=== PATIENT | male | born 1950 | race Caucasian/White ===

== ENCOUNTER 2024-07-13 21:37 | Emergency (ER) | payer OTHER ==
--- OUTSIDE RECORDS SUMMARY | 2024-07-13 21:40 | XMS REPORT | Continuity of Care Document ---
Author Name Unknown Address [address] [place] [address] [facility] [place] Address [address] [place] [address] Care Team Providers Care Clock Maker Name Role Phone JUSTINA ZUÑIGA Primary Care Physician Alek [facility] Attending Clinician CARMEN Parsons Attending Clinician UnavailCARMEN Weiner Attending Clinician Unavail able LAB90 Attending Clinician Unavailable Pob, Adc Lab Main Attending Clinician UnavailJustina Dinh Attending Clinician [phone] JUSTINA ZUÑIGA Attending Clinician Unavailable Doctor Unassigned, [place] Attending Clinician U navailable Payers Payer Name Policy Type Policy Number Effective Date Expirati on Date Source [employer] [place] PPO 5 [id number] 2024 00:00:00 [employer] 2 [id number] 2024 00:00:00 Problems Condition Name Condition Details Condition Category Status Onset Date Resolution Date Last Treatment Date Treating Clinician Comments Source Well adult exam Well adult exam Disease Active 06-04 00:00: 00 Irma rojas Blood pressure elevated without history of HTN Blood pressure elevated without history of HTN Disease Active 06-04 00:00: 00 Irma rojas Allergies, Adverse Reactions, Alerts Allergy Name Allergy Type Status Severity Reaction(s) Onset Date Inactive Date Treating Clinician Comments Source NO KNOWN ALLERGIE S Drug Class Active [facility] Social History Social Habit Start Date Stop Date Quantity Comments Source Sexual orientation Roque Mata - External Alcoholic beverage intake 2024-06-04 00:00:00 2024-06-04 00:00:00 Lifetime non-drinker (finding) Irma Mata - External History of Social function 2024-06-04 00:00:00 2024-06-04 00:00:00 Irma Mata - External Tobacco use and exposure 2024-05-06 00:00:00 2024-05-06 00:00:00 Smokeless tobacco non-user Irma Mata - External Sex 2024-04-07 08:07:11 2024-04-07 08:07:11 Male (finding) Irma Mata - External Sex assigned at 1950 00:00:00 1950 00:00:00 Irma Mata - External Smoking Status Start Date Stop Date Source Unknown if ever smoked [facility] Never smoked tobacco Irma Croninectorarturo - External Medications Ordered Medication Name Filled Medication Name Start Date Stop Date Current Medication? Ordering Clinician Indication Dosage Frequency Signature (SIG) Comments Components Source Amoxicillin -Pot Clavulanate 875-125 MG oral Tablet 05-06 00:00: 00 06-04 00:00 :00 No [id number] 1{tbl} Take 1 tablet by mouth every 12 hours Please take with food. Irma Croninboogie - Externa l Vital Signs Vital Name Observation Time Observation Value Comments S ource Systolic blood pressure 2024-06-04 14:42:00 144 mm[Hg] Irma magdalena ld - External Diastolic blood pressure 2024-06-04 14:42:00 72 mm[Hg] Irma magdalena ld - External Heart rate 2024-06-04 13:44:00 73 /min Vickey Mata - External Body temperature 2024-06-04 13:44:00 36.56 Catrachita Irma Esperanza - External Respiratory rate 2024-06-04 13:44:00 20 /min Irma boogie - External Body height 2024-06-04 13:44:00 180.3 cm Nohemy Mata - External Body weight 2024-06-04 13:44:00 128.822 kg Nohemy ey Seybold - External BMI 2024-06-04 13:44:00 39.61 kg/m2 Nohemy ey Seybold - External Oxygen saturation in Arterial blood by Pulse oximetry 2024-06-04 13:44:00 95 /min Irma Saleho ld - External Systolic blood pressure 2024-05-06 16:06:00 130 mm[Hg] Irma Saleho ld - External Diastolic blood pressure 2024-05-06 16:06:00 87 mm[Hg] Irma Saleho ld - External Heart rate 2024-05-06 16:06:00 88 /min Vickey y Seybold - External Body temperature 2024-05-06 16:06:00 36.5 Catrachita Irma Croninybold - External Respiratory rate 2024-05-06 16:06:00 19 /min Irma Croninybold - External Body height 2024-05-06 16:06:00 180.3 cm Nohemy ey Seybold - External Body weight 2024-05-06 16:06:00 125.646 kg Nohemy ey Seybold - External BMI 2024-05-06 16:06:00 38.63 kg/m2 Nohemy benedict Seybold - External Oxygen saturation in Arterial blood by Pulse oximetry 2024-05-06 16:06:00 95 /min Irma Lucas ld - External Procedures Procedure Date / Time Performed Performing Clinicia n Source ASSIGNMENT OF BENEFITS 2021-07-14 14:42:34 Docto r Unassigned, [place] [facility] Encounters Start Date/Time End Date/Time Encounter Type Admission Type [facility] Department Encounter ID Source 2024-06-11 09:15:00 2024-06-11 09:15:00 Outpatient LIAT [facility] [id number] Irma Mata 2024-06-11 00:00:00 2024-06-11 00:00:00 Outpatient CARMEN GIRARD [id number] Irma Mata 2024-06-09 00:00:00 2024-06-09 00:00:00 Outpatient CARMEN GIRARD [id number] Irma Mata 2024-06-04 10:05:00 2024-06-04 10:05:00 Outpatient LAB90 IRMA NIÑO [id number] Irma Mata 2024-06-04 09:00:00 2024-06-04 09:00:00 Outpatient CARMEN GIRARD [id number] Irma Mata 2024-05-06 10:00:00 2024-05-06 10:00:00 Outpatient CARMEN GIRARD IRMA [id number] Irma Mata 2021-07-14 10:30:00 2021-07-14 10:45:00 Picker Operator Visit Pob, Adc Lab Justina Dhillon [facility] [id number] [facility] 2021-07-14 10:30:00 2021-07-14 10:30:00 Outpatient R JUSTINA ZUÑIGA [facility] [id number] [facility] 2021-07-14 00:00:00 2021-07-14 00:00:00 Orders Only Doctor Unassigned, [place] [facility] [id number] [facility]
[2024-07-13] MEDS ORDERED: NA CHLORIDE 0.9% 1,000 ML ONE (22:44)
[2024-07-13 22:49] LABS: Absolute Lymphocytes (CBC) 1.6 K/uL (0.7-4.9); Absolute Monocytes 0.9 K/uL (0.1-1.3); Basophils % 0.3 % (0-1.3); Eosinophils % 0.1 % (0-4.4); Hematocrit 43.9 % (39.6-49.0); Hemoglobin 14.9 g/dL (13.6-17.9); Lymphocytes % 16.6 % (15.3-44.8); MCHC 33.9 g/dL (32.0-36.0); MCV 94.4 fL (80-100); MPV 10.9 fL (7.6-11.3); Monocytes % 9.8 % (3.3-12.3); Neutrophils % 73.2 % (41.7-73.7); Nucleated Red Blood Cells % 0.1 % (0-0); Platelets 123 thou/uL (152-406); RBC Red Blood Cell Count 4.65 M/uL (4.33-5.43); Red Cell Distribution Width 12.6 % (12.1-15.2)
[2024-07-13 23:03] LABS: Albumin/Globulin Ratio 0.6 (1.1-1.8); Anion Gap 10.1 mEq/L (5.0-15.0); Bilirubin Total 0.8 mg/dL (0.2-1.0); Globulin 5.1 g/dL (2.3-3.5); Potassium 4.1 mEq/L (3.5-5.1); Protein, Total 8.1 g/dL (6.4-8.2)
--- NOTE | 2024-07-14 00:12 | RAD REPORT ---
EXAM DESCRIPTION: CT ABDOMEN PELVIS WITHOUT IV CONTRAST 07/13/2024 11:58 PM CDT CLINICAL HISTORY: 73 years, Male, Abdominal pain. COMPARISON: None. PROCEDURE: Noncontrast images of the abdomen and pelvis were performed from the lung bases to the ischial tubero sities. In addition multiplanar reformats in the coronal and sagittal plane were obtained and reviewed. An individualized dose optimization technique, Automated Exposure Control, was utilized for the perfo rmed procedure. FINDINGS: The lack of IV contrast limits evaluation of solid organs, subtle lesions cannot be exclude d. In addition several of the images are comprised by breathing motion artifact limiting diagnostic value Lung bases: The lung bases demonstrated presence of compressive atelectatic changes posterior CP angl es. Liver: Grossly the unopacified liver demonstrates to be normal, no focal lesions are identified. Gallbladder: Grossly the unopacified gallbladder demonstrate to be normal. Adrenal glands: Grossly the unopacified adrenal glands demonstrate to be normal. Pancreas: Grossly the unopacified pancreas demonstrate to be normal Spleen: The spleen demonstrate to be normal. Kidneys: There is left hydronephrosis and left hydroureter extending down to left side roof of the ac etabulum where there is a 3.7 x 4.2 mm calculus on axial image 78 and coronal image 43. No significant residual calculi is identified within the left kidney. The right kidney demonstrate to be within normal limits. There is no evidence for right nephrolithias is and/or right hydronephrosis. GI: Grossly the unopacified stomach and small bowel bowel demonstrate to be within normal limits. No evidence for bowel dilatation and/or free air. The appendix was not visualized. The left-sided colon/sigmoid colon demonstrates presence of scattered diverticulosis. : The urinary bladder demonstrate to be unremarkable. Genitalia: The prostate gland is normal. Abdominal aorta: The aorta demonstrate demonstrate to be within normal limits. Retroperitoneum: There is no retroperitoneal lymphadenopathy. There is no evidence for ascites and/or abnormal fluid collections. Bones: The bones demonstrate to be demineralized. The lumbar spine demonstrate minimal degenerative c hanges throughout the lumbar spine. Soft tissues: There is a tiny right inguinal hernia containing omentum. IMPRESSION: Left hydronephrosis and left hydroureter extending down to the left side roof of the acetabulum where there is a 3.7 x 4.2 mm calculus. Tiny right inguinal hernia containing omentum. Diverticulosis. Electronically signed by: Les Valentino MD 07/14/2024 12:08 AM CDT RP Due to temporary technical issues with the PACS/Yadio reporting system, reports are being madi d by the in-house radiologist without review as a courtesy to ensure prompt reporting the interpreting radiologist is fully responsible for the content of the report. Transcribed Date/Time: 07/14/2024 12:12 AM
[2024-07-14] MEDS ORDERED: TAMSULOSIN 0.4 MG SR CAP ONE (01:02)
--- NOTE | 2024-07-14 01:11 | EDPHYS ---
Physician Documentation [facility] Name: Tc Sharp Age: 73 yrs Sex: Male : 1950 Arrival Date: 07/13/2024 Time: 21:37 Bed 8 Private MD: ED Physician Tony Menchaca HPI: 07/13 21:49 This 73 yrs old Male presents to ER via Unassigned with complaints of sp4 Constipation, Pain. 07/14 04:23 Patient presents with complaint of acute left-sided abdominal discomfort associated sp4 with feeling of constipation.. Historical: - Allergies: 07/13 21:50 No Known Allergies; ha1 - Home Meds: 21:50 Aspirin Oral [Active]; ha1 - PMHx: 21:50 Atrial fibrillation; Hypertensive disorder; Hypercholesterolemia; ha1 - Immunization history:: Adult Immunizations up to date. - Infectious Disease History:: Denies. - Social history:: Smoking status: Patient denies any tobacco usage or history of. - Family history:: not pertinent. ROS: 07/14 04:23 Constitutional: Negative for fever, chills, and weight loss, Eyes: Negative for injury, sp4 pain, redness, and discharge, Abdomen/GI: Positive left abdominal pain, positive feeling of constipation All other systems are negative, Exam: 04:21 Constitutional: This is a well developed, well nourished patient who is awake, alert, sp4 and in no acute distress. Head/Face: Normocephalic, atraumatic. Eyes: Pupils equal round and reactive to light, extra-ocular motions intact. Lids and lashes normal. Conjunctiva and sclera are not injected. Cornea within normal limits. Periorbital areas with no swelling, redness, or edema. ENT: Nares patent. No nasal discharge, no septal abnormalities noted. Tympanic membranes are normal and external auditory canals are clear. Oropharynx with no redness, swelling, or masses, exudates, or evidence of obstruction, uvula midline. Mucous membranes moist. Neck: Trachea midline, no thyromegaly or masses palpated, and no cervical lymphadenopathy. Supple, full range of motion without nuchal rigidity, or vertebral point tenderness. Chest/axilla: Normal chest wall appearance and motion. Nontender with no deformity. No lesions are appreciated. Cardiovascular: Regular rate and rhythm with a normal S1 and S2. No gallops, murmurs, or rubs. Normal PMI, no JVD. No pulse deficits. Respiratory: Lungs have equal breath sounds bilaterally, clear to auscultation and percussion. No rales, rhonchi or wheezes noted. No increased work of breathing, no retractions or nasal flaring. Abdomen/GI: Soft, with normal bowel sounds. No distension or tympany. No guarding or rebound. No evidence of tenderness throughout. Back: No spinal tenderness. No costovertebral tenderness. Skin: Warm, dry with normal turgor. Normal color with no rashes, no lesions, and no evidence of cellulitis. MS/ Extremity: Pulses equal, no cyanosis. Neurovascular intact. Full, normal range of motion. Neuro: Awake and alert, GCS 15, oriented to person, place, time, and situation. Cranial nerves II-XII grossly intact. Motor strength 5/5 in all extremities. Sensory grossly intact. Psych: Awake, alert, with orientation to person, place and time. Behavior, mood, and affect are within normal limits 04:21 ECG was reviewed by the Attending Physician. EKG at 2159 normal sinus rhythm, PVCs. Vital Signs: 07/13 21:45 BP 139 / 101; Pulse 51; Resp 18; Temp 98.1; Pulse Ox 98% on R/A; Weight 120.2 kg; ha1 Height 5 ft. 11 in. ; 23:17 BP 109 / 99; Pulse 86; Resp 19; Pulse Ox 95% ; cp4 07/14 00:30 BP 149 / 86; Pulse 90; Resp 18; Pulse Ox 96% ; cp4 07/13 21:45 Body Mass Index 36.96 (120.20 kg, 180.34 cm) ha1 [place] Coma Score: 04:21 Eye Response: spontaneous(4). Motor Response: obeys commands(6). Verbal Response: sp4 oriented(5). Total: 15. MDM: 07/13 22:08 Medical Screening Exam initiated sp4 07/14 04:23 Differential diagnosis: appendicitis, bowel obstruction, diverticulitis, gastritis, sp4 gastroesophageal reflux disease. Data reviewed: vital signs, nurses notes, lab test result(s), EKG, radiologic studies, CT scan. Consideration of Admission/Observation Escalation of care including admission/observation considered. 04:25 ED course: CT -- PROCEDURE: Noncontrast images of the abdomen and pelvis were performed sp4 from the lung bases to the ischial tuberosities. In addition multiplanar reformats in the coronal and sagittal plane were obtained and reviewed. An individualized dose optimization technique, Automated Exposure Control, was utilized for the performed procedure. FINDINGS: The lack of IV contrast limits evaluation of solid organs, subtle lesions cannot be excluded. In addition several of the images are comprised by breathing motion artifact limiting diagnostic value Lung bases: The lung bases demonstrated presence of compressive atelectatic changes posterior CP angles. Liver: Grossly the unopacified liver demonstrates to be normal, no focal lesions are identified. Gallbladder: Grossly the unopacified gallbladder demonstrate to be normal. Adrenal glands: Grossly the unopacified adrenal glands demonstrate to be normal. Pancreas: Grossly the unopacified pancreas demonstrate to be normal Spleen: The spleen demonstrate to be normal. Kidneys: There is left hydronephrosis and left hydroureter extending down to left side roof of the acetabulum where there is a 3.7 x 4.2 mm calculus on axial image 78 and coronal image 43. No significant residual calculi is identified within the left kidney. The right kidney demonstrate to be within normal limits. There is no evidence for right nephrolithiasis and/or right hydronephrosis. GI: Grossly the unopacified stomach and small bowel bowel demonstrate to be within normal limits. No evidence for bowel dilatation and/or free air. The appendix was not visualized. The left-sided colon/sigmoid colon demonstrates presence of scattered diverticulosis. : The urinary bladder demonstrate to be unremarkable. Genitalia: The prostate gland is normal. Abdominal aorta: The aorta demonstrate demonstrate to be within normal limits. Retroperitoneum:There is no retroperitoneal lymphadenopathy. There is no evidence for ascites and/or abnormal fluid collections. Bones: The bones demonstrate to be demineralized. The lumbar spine demonstrate minimal degenerative changes throughout the lumbar spine. Soft tissues: There is a tiny right inguinal hernia containing omentum. IMPRESSION: Left hydronephrosis and left hydroureter extending down to the left side roof of the acetabulum where there is a 3.7 x 4.2 mm calculus. Tiny right inguinal hernia containing omentum. Diverticulosis.. 07/13 22:22 Order name: CBC with Diff; Complete Time: 00:29 sp4 07/13 22:22 Order name: CMP; Complete Time: 00:29 sp4 07/13 22:22 Order name: Lipase; Complete Time: 00:29 sp4 07/13 23:40 Order name: Abdomen EDMS 07/13 22:22 Order name: IV Saline Lock; Complete Time: 22:39 sp4 07/13 22:22 Order name: Labs collected and sent; Complete Time: 22:39 sp4 EC/05 21:59 Rate is 95 beats/min. Rhythm is irregular, Normal Sinus Rhythm with Unifocal PVCs, sp4 Occasional PVCs. QRS Nichols is Normal. HI interval is normal. QRS interval is normal. QT interval is normal. No Q waves. T waves are Normal. No ST changes noted. Clinical impression: No evidence of ischemia. Interpreted by me. Reviewed by me. Administered Medications: 22:46 Drug: NS 0.9% IV 1000 ml IV at 1 bolus Per protocol; to be given as a bolus over 60 cp4 minutes Route: IV; Rate: 1 bolus; Site: right antecubital; 07/14 01:32 Follow up: IV Status: Completed infusion cp4 01:06 Drug: Flomax PO 0.8 mg PO once Route: PO; cp4 01:32 Follow up: Response: No adverse reaction cp4 Disposition Summary: 07/14/24 01:10 Discharge Ordered Notes: Location: Home sp4 Problem: new sp4 Symptoms: have improved sp4 Condition: Stable sp4 Diagnosis - Acute left distal ureteral calculus, elevated creatinine sp4 Followup: sp4 - With: Carl Street DO - When: 10 - 14 days - Reason: Recheck today's complaints Discharge Instructions: - Discharge Summary Sheet sp4 - Kidney Stones, [id number] sp4 - Chronic Kidney Disease, Adult, [id number] sp4 Forms: - Patient Portal Instructions sp4 Prescriptions: - Flomax 0.4 mg Oral capsule - take 1 capsule ORAL route daily; 30 capsule; Refills: 0, Product Selection sp4 Permitted - Reglan 10 mg Oral tablet - take 1 tablet ORAL route every 8 hours PRN nausea; 30 tablet; Refills: 0, sp4 Product Selection Permitted - Tramadol 50 mg Oral tablet - take 1 tablet ORAL route every 8 hours as needed; 30 tablet; Refills: 0, sp4 Product Selection Permitted Signatures: Dispatcher [employer] EDMS Erna Dong, RN RN ha1 Tony Menchaca MD MD sp4 Diandra Wise cp4 Corrections: (The following items were deleted from the chart) 07/13 23:40 22:23 Abdomen Pelvis W Con+CT.RAD.BRZ ordered. EDMS EDMS
--- NOTE | 2024-07-14 01:11 | ER ---
Nurse's Notes [facility] Name: Tc Sharp Age: 73 yrs Sex: Male : 1950 Arrival Date: 07/13/2024 Time: 21:37 Bed 8 Private MD: Diagnosis: Acute left distal ureteral calculus, elevated creatinine Presentation: 07/13 21:45 Chief complaint: Patient states: CONSTIPATED FOR OVER TWO WEEKS . ABDOMINAL PAIN. ha1 21:45 Coronavirus screen: Client denies travel out of the [place] in the last 14 days. Ebola ha1 Screen: No symptoms or risks identified at this time. Initial Sepsis Screen: Does the patient meet any 2 criteria? No. Patient's initial sepsis screen is negative. Does the patient have a suspected source of infection? No. Patient's initial sepsis screen is negative. Risk Assessment: Do you want to hurt yourself or someone else? Patient reports no desire to harm self or others. Onset of symptoms was July 13, 2024. 21:45 Method Of Arrival: Ambulatory ha1 21:45 Acuity: MAN 3 ha1 Historical: - Allergies: 21:50 No Known Allergies; ha1 - Home Meds: 21:50 Aspirin Oral [Active]; ha1 - PMHx: 21:50 Atrial fibrillation; Hypertensive disorder; Hypercholesterolemia; ha1 - Immunization history:: Adult Immunizations up to date. - Infectious Disease History:: Denies. - Social history:: Smoking status: Patient denies any tobacco usage or history of. - Family history:: not pertinent. Screenin:57 [facility] ED Fall Risk Assessment (Adult) History of falling in the last 3 months, cp4 including since admission No falls in past 3 months (0 pts) Confusion or Disorientation No (0 pts) Intoxicated or Sedated No (0 pts) Impaired Gait No (0 pts) Mobility Assist Device Used No (0 pt) Altered Elimination No (0 pt) Score/Fall Risk Level 0 - 2 = Low Risk Oriented to surroundings, Maintained a safe environment, Assessed \T\ reinforced patient's understanding of fall precautions, Hourly rounding (assess needs \T\ fall precautionary measures) done. Abuse screen: Denies threats or abuse. Denies injuries from another. Nutritional screening: No deficits noted. Tuberculosis screening: No symptoms or risk factors identified. Assessment: 21:57 General: Appears in no apparent distress. comfortable, Behavior is calm, cooperative, cp4 appropriate for age. Pain: Denies pain. Neuro: Level of Consciousness is awake, alert, obeys commands, Oriented to person, place, time, situation. Cardiovascular: Patient's skin is warm and dry. Respiratory: Airway is patent Respiratory effort is even, unlabored. GI: Abdomen is obese, Bowel sounds present X 4 quads. Abd is soft and non tender X 4 quads. Reports diarrhea, gaseousness. : No signs and/or symptoms were reported regarding the genitourinary system. EENT: No signs and/or symptoms were reported regarding the EENT system. Derm: No signs and/or symptoms reported regarding the dermatologic system. Musculoskeletal: No signs and/or symptoms reported regarding the musculoskeletal system. Vital Signs: 21:45 BP 139 / 101; Pulse 51; Resp 18; Temp 98.1; Pulse Ox 98% on R/A; Weight 120.2 kg; ha1 Height 5 ft. 11 in. ; 23:17 BP 109 / 99; Pulse 86; Resp 19; Pulse Ox 95% ; cp4 05 00:30 BP 149 / 86; Pulse 90; Resp 18; Pulse Ox 96% ; cp4 07/13 21:45 Body Mass Index 36.96 (120.20 kg, 180.34 cm) ha1 Teresa Coma Score: 04:21 Eye Response: spontaneous(4). Motor Response: obeys commands(6). Verbal Response: sp4 oriented(5). Total: 15. ED Course: 07/13 21:45 Patient arrived in ED. gm2 21:49 Tony Menchaca MD is Attending Physician. sp4 21:50 Triage completed. ha1 21:57 Diandra Wise is Primary Nurse. cp4 21:57 Bed in low position. Call light in reach. Side rails up X 1. cp4 22:38 Initial lab(s) drawn, by me, sent to lab. Inserted saline lock: 20 gauge in right rk3 antecubital area, using aseptic technique. Blood collected. Flushed with 10 mL NS. 23:40 Abdomen In Process Unspecified. EDMS 07/14 01:[address] DO is Referral Physician. sp4 01:31 Provided Education on: kidney stone. cp4 01:31 No provider procedures requiring assistance completed. intact, bleeding controlled, No cp4 redness/swelling at site. Pressure dressing applied. 01:32 Arm band placed on right wrist. Patient placed in waiting room. cp4 Administered Medications: 07/13 22:46 Drug: NS 0.9% IV 1000 ml IV at 1 bolus Per protocol; to be given as a bolus over 60 cp4 minutes Route: IV; Rate: 1 bolus; Site: right antecubital; 07/14 01:32 Follow up: IV Status: Completed infusion cp4 01:06 Drug: Flomax PO 0.8 mg PO once Route: PO; cp4 01:32 Follow up: Response: No adverse reaction cp4 Medication: 07/13 21:57 VIS not applicable for this client. cp4 Outcome: 07/14 01:10 Discharge ordered by . sp4 01:31 Discharged to home ambulatory, cp4 01:31 Condition: stable 01:31 Discharge instructions given to patient, family, Instructed on discharge instructions, follow up and referral plans. medication usage, Demonstrated understanding of instructions, follow-up care, medications, Prescriptions given X 3, 01:33 Patient left the ED. cp4 Signatures: Dispatcher [employer] EDMS Erna Dong RN RN ha1 Tony Menchaca MD MD sp4 Diandra Wise cp4 Marian Wyman 2 Jannie Ramos rk3 Corrections: (The following items were deleted from the chart) 07/13 21:52 21:45 Pulse 51bpm; Resp 18bpm; Pulse Ox 98% RA; Temp 98.1F; 120.2 kg; Height 5 ft. 11 ha1 in.; BMI: 36.9; ha1
[2024-07-14 09:04] VITALS: TEMP 98.1
[2024-07-14 09:06] VITALS: BP 149/86; O2SAT 96
--- NOTE | 2024-07-16 11:51 | EKG ---
Test Date: 2024-07-13 Test Time: 21:59:58 Communications Project Lead: SHANIKA MEASUREMENT RESULTS: Intervals: Rate: 95 [place]: 168 QRSD: 118 QT: 378 QTc: 475 [place]: P: 57 [place]: 168 QRS: 22 T: 57 INTERPRETIVE STATEMENTS: Sinus rhythm with frequent premature ventricular complexes Incomplete left bundle branch block Borderline ECG No previous ECG available for comparison Electronically Signed On 07-16-24 11:44:56 CDT by Guillaume Patel
== END 2024-07-14 01:33 | disposition home or self-care (01) ==
LOC: ER 21:37
DX: N20.1 Calculus of ureter (principal); R79.89 Other specified abnormal findings of blood chemistry; I10 Essential (primary) hypertension; I48.91 Unspecified atrial fibrillation; Z79.82 Long term (current) use of aspirin
CPT/HCPCS: 96361; 93005; 85025; 36415; 83690; 80053; 74176; 96360; 99284; J7030